=== PATIENT | female | born 1945 | race Caucasian/White ===

== ENCOUNTER → 2016-07-27 | Outpatient (CLI) | payer OTHER, MEDICARE ==
[~2016-07-27] MED LIST: ALENDRONATE SOD70 MG PO; ALEVE220 M1 PO; CALCIUM 600 +1 EAC1 PO; CO Q-10100 MG PO; GLUCOSAMINE HC500 MG PO; LEVOTHYROXINE0.05 MG PO; LISINOPRIL20 MG PO; OMEPRAZOLE40 MG PO; ONDANSETRON HCL4 M2 PO; ZOCOR20 MG PO
== END ==
LOC: RAD 02:15
DX: L98.2 Febrile neutrophilic dermatosis [Sweet] (principal); R10.9 Unspecified abdominal pain; Z85.3 Personal history of malignant neoplasm of breast

== ENCOUNTER → 2016-08-04 | Outpatient (CLI) | payer OTHER, MEDICARE ==
[~2016-08-04] VITALS: Ht 157.5 cm; Wt 59.0 kg
[~2016-08-04] MED LIST changes: +ASPIR 8181 MG PO; +DEXILANT60 MG PO; +GLUCOSAMINE CH1 EAC2 PO; +VITAMIN D-32000 UNIT PO
--- NOTE | ~2016-08-04 | S ---
[facility] [place] [place] [address] SURGICAL PATH RPT PROCEDURE Name: GERTRUDE LEVY Room #: REG [facility] [place].#: [id number] Admission: 08/04/16 Date of : 43 Discharge: Report #: [id number] Path Case #: [id number] PATHOLOGY REPORT COLLECTION DATE: 08/04/2016 RECEIVED DATE: 08/04/2016 SUBMITTING PHYS: Dr. Paxton Taylor OTHER PHYS: Dr. Dudley Humphries SPECIMEN(S) RECEIVED: A.Duodenum B.Gastric * * * * * * * * * * * * FINAL DIAGNOSIS: A. Small bowel, duodenum, rule out celiac, endoscopic biopsy: - No significant diagnostic abnormalities present. B. Gastric mucosa, gastric rule out H. pylori, endoscopic biopsy: - Mild reactive gastropathy. - Negative for intestinal metaplasia or atrophy. - Negative for Helicobacter pylori. COMMENT: Helicobacter pylori immunohistochemical stain performed on block B1-negative. PATHOLOGIST: Aure Jordan M.D. REPORT ELECTRONICALLY SIGNED BY: Aure Jordan M.D. DATE/TIME: 08/08/2016 15:47 * * * * * * * * * * * * GROSS PATHOLOGY: A. Received in formalin labeled "Gertrude Levy, duodenum rule out celiac," are 4 segments of núñez soft tissue measuring 0.8 x 0.5 x 0.4 cm in aggregate dimensions and ranging from 0.2 to 0.5 cm in maximum dimension. The specimen is submitted entirely in cassette A1. B. Received in formalin labeled "Gertrude Levy, gastric rule out H. pylori," are 4 segments of núñez soft tissue measuring 0.5 x 0.5 x 0.5 cm in aggregate dimensions and ranging from 0.2 to 0.5 cm in maximum dimension. The specimen is submitted entirely in cassette B1. (KAH; 08/07/2016) CLINICAL HISTORY: Epigastric pain, nausea [facility] [place] [address] SURGICAL PATH RPT PROCEDURE Name: GERTRUDE LEVY JAIME Room #: REG [facility].#: [id number] Admission: 08/04/16 Date of : 43 Discharge: Report #: [id number] Path Case #: [id number] INITIAL CPT CODE(S): A; 24915 B; 72748, 81291 Professional services [address] by [facility] [address], [place] [address] Technical services performed by [facility] at [address] [place] [address], [facility] [address] [address]. [facility] [place] [address] PHONE: [phone] DIRECTOR: Francisco Ramírez M.D. * * * END OF REPORT * * *
--- NOTE | ~2016-08-04 | P ---
[facility] [place] [place] [address] PROCEDURE REPORT Name: GERTRUDE GAYLE [facility] [id number] Admission: 08/04/16 Attend Phys: Paxton Shabazz Discharge: Date of : 43 Report #: [id number] THIS REPORT FOR: //name// CC: Paxton Humphries MD DATE OF SERVICE: 08/04/2016 PROCEDURE PERFORMED: Upper endoscopy with biopsies. HISTORY OF PRESENT ILLNESS: The patient is a 71-year-old female with nausea, mid epigastric abdominal pain, intermittent heartburn symptoms, previously was on omeprazole, switched to Dexilant, which she has been on for the last 5-6 weeks without much improvement in her symptoms. She denies any dysphagia or odynophagia. Her weight has been stable. She reports her bowel movements have been normal. The patient does take aspirin on a regular basis. She had a CT scan of her abdomen and pelvis on 07/27/2016, showed no acute process in the abdomen, moderate amount of stool within the colon may represent mild constipation, mild atherosclerosis of the aorta was noted, gallbladder was normal. Plan is for upper endoscopy. DESCRIPTION OF PROCEDURE: The risks and benefits of the procedure were explained to the patient, those risks including but not limited to bleeding, perforation and the risk of sedation. She understood these risks and gave informed consent. Sedation was given using propofol per anesthesia. Next, using a standard IR [employer] upper endoscope, the scope was placed in the patient's mouth and advanced under direct vision through the esophagus, stomach and into the second portion of the duodenum. In the upper esophagus, two small ____ patches were noted, otherwise normal esophagus, GE junction was normal. No evidence of esophagitis or Cardoza's. Overall, the gastric mucosa was normal. Because of her symptoms, biopsies were obtained to rule out the possibility of H. pylori. The pylorus was normal and patent. The duodenal bulb, first and second portion were all normal. Biopsies were also obtained in the duodenum to rule out celiac sprue. The scope was then withdrawn and the procedure terminated. The patient tolerated the procedure well. IMPRESSION: Normal upper endoscopy. RECOMMENDATIONS: 1. Await biopsy results. 2. Continue PPI therapy. 3. We will add Zofran on a p.r.n. basis at this time. 4. If biopsies are negative and patient has continued symptoms, consider PIPIDA scan. [address] [address] PROCEDURE REPORT Name: GERTRUDE GAYLE Room #: REG [facility]faye#: [id number] Admission: 08/04/16 Attend Phys: Paxton Shabazz Discharge: Date of : 43 Report #: [id number] Thank you for allowing me to participate in her care. <ELECTRONICALLY SIGNED> By: Paxton Taylor MD 08/07/16 0826 [id number] [id number] Paxton Taylor MD /dorene
== END ==
LOC: GI
DX: R10.13 Epigastric pain (principal)
CPT/HCPCS: 62110; 62900